=== PATIENT | male | born 1955 ===

== ENCOUNTER 2019-06-29 18:04 | Outpatient (REF) | payer MEDICARE, SELFPAY ==
[2019-06-29 18:41] LABS: Bacteria Negative HPF (Negative); C & S Indicated? No; Crystals Negative HPF (Negative); Epithelial Cells Negative HPF (Negative); Mucus Negative (Negative); WBC Negative HPF (0-5)
[2019-06-29 19:08] LABS: Anion Gap 8.5 mmol/L (3-11); BUN 14 mg/dL (7-18); CO2 28.5 mmol/L (21.0-32.0); CREATININE 1.04 mg/dL (0.70-1.30); Calcium 9.3 mg/dL (8.5-10.1); Calculated LDL 141 mg/dL; Chloride 103 mmol/L (98-107); Cholesterol 235 mg/dL (50-200); Glucose 98 mg/dL (70-100); HDL Cholesterol 58 mg/dL (40-60); Potassium 4.5 mmol/L (3.5-5.1); Sodium 140 mmol/L (136-145); Triglyceride 183 mg/dL (30-150)
== END 2019-06-29 18:24 ==
LOC: NCHCN 18:04
PROVIDERS: PCP Internal Medicine; Visit Provider Internal Medicine
DX: E78.5 Hyperlipidemia, unspecified (principal); Z87.448 Personal history of other diseases of urinary system; R82.90 Unspecified abnormal findings in urine
CPT/HCPCS: 80048; 80061; 81015